=== PATIENT | female | born 1950 | race African-American/Black ===

== ENCOUNTER 2024-03-25 09:42 | Inpatient (IN) | payer OTHER ==
[2024-03-25] VITALS (26 sets, daily range): BP systolic 91–159; BP diastolic 42–127; TEMP 100.6; O2SAT 93–100
[~2024-03-25] VITALS: Ht 172.7 cm; Wt 113.9 kg
[2024-03-25] MEDS ORDERED: MEROPENEM 1 G in IV NS 0.9% 100 ML IV ONE (10:00)
[2024-03-25] MEDS ORDERED: ACETAMINOPHEN 650 MG/SUPP.RECT RC ONE (10:00)
[2024-03-25 10:17] LABS: BASOPHILS # (AUTO) 0.2 K/uL (0.0-0.2); BASOPHILS % (AUTO) 1.1 % (0.0-2.0); HEMATOCRIT 34 % (33-45); HEMOGLOBIN 10.8 g/dL (11.5-14.8); LYMPHOCYTES # (AUTO) 3.7 K/uL (0.8-4.8); LYMPHOCYTES % (AUTO) 23.1 % (20.0-44.0); MEAN CORPUSCULAR HEMOGLOBIN 27 PG (26.0-33.0); MEAN CORPUSCULAR HGB CONC 32 g/dl (31.0-36.0); MEAN CORPUSCULAR VOLUME 84 fL (82-100); MONOCYTES # (AUTO) 3.4 K/uL (0.1-1.30); MONOCYTES % (AUTO) 21.8 % (2.0-12.0); NEUTROPHILS # (AUTO) 8.5 K/uL (1.8-8.9); PLATELET COUNT (AUTO) 123 K/uL (150-450); RED BLOOD CELL COUNT(AUTO) 4.06 MIL/uL (4.0-5.2); RED CELL DISTRIBUTION WIDTH 20.6 % (11.5-15.0); WHITE BLOOD COUNT (AUTO) 15.8 K/uL (4.3-11.0)
[2024-03-25 10:23] LABS: CALCIUM, SERUM 8.8 mg/dL (8.5-10.1); CARBON DIOXIDE 36 mmol/L (21-32); CHLORIDE 101 mmol/L (98-107); CREATININE 1.4 mg/dL (0.6-1.3); GLUCOSE 187 mg/dL (74-106); POTASSIUM 3.9 mmol/L (3.5-5.1); SODIUM SERUM 143 mmol/L (136-145); UREA NITROGEN, BLOOD 52 mg/dL (7-18)
[2024-03-25] MEDS ORDERED: NUT.237L31 GT (10:27)
[2024-03-25] MEDS ORDERED: IPRA4AER IH ×2 (10:27)
[2024-03-25] MEDS ORDERED: CHLO473M2 MM (10:27)
[2024-03-25] MEDS ORDERED: PSYL283P40 GT (10:27)
[2024-03-25] MEDS ORDERED: NA P133E RC (10:27)
[2024-03-25] MEDS ORDERED: CRAN3875 GT (10:27)
[2024-03-25] MEDS ORDERED: MAGN400O6 GT (10:27)
[2024-03-25] MEDS ORDERED: ACET-2030 GT (10:27)
[2024-03-25] MEDS ORDERED: BIKTARVY GT (10:27)
[2024-03-25] MEDS ORDERED: AMLO10TA4 GT (10:27)
[2024-03-25] MEDS ORDERED: HEPA50008 SQ (10:27)
[2024-03-25] MEDS ORDERED: ALLA266C2 TP (10:27)
[2024-03-25] MEDS ORDERED: METO25TA6 GT (10:27)
[2024-03-25] MEDS ORDERED: HYDR-4076 GT (10:27)
[2024-03-25] MEDS ORDERED: ACET-868 GT (10:27)
[2024-03-25] MEDS ORDERED: VALP250S4 GT (10:27)
[2024-03-25] MEDS ORDERED: DOCU100T2 GT (10:27)
[2024-03-25] MEDS ORDERED: CICL6.6S5 TP (10:27)
[2024-03-25] MEDS ORDERED: LISI40TA13 GT (10:27)
[2024-03-25] MEDS ORDERED: LEVE100S GT (10:27)
[2024-03-25] MEDS ORDERED: ATOR40TA GT (10:27)
[2024-03-25] MEDS ORDERED: LACO100T2 GT (10:27)
[2024-03-25] MEDS ORDERED: FAMO-131 GT (10:27)
[2024-03-25] MEDS ORDERED: BISA10SU11 RC (10:27)
[2024-03-25] MEDS ORDERED: CLON0.1T GT (10:27)
[2024-03-25 10:30] LABS: ALANINE AMINOTRANSFERASE 19 U/L (12-78); ALBUMIN 1.9 g/dL (3.4-5.0); ALKALINE PHOSPHATASE 59 U/L (46-116); ASPARTATE AMINOTRANSFERASE 30 U/L (15-37); BILIRUBIN,DIRECT 0.1 mg/dL (0.0-0.2); BILIRUBIN,TOTAL 0.3 mg/dL (0.2-1.0); TOTAL PROTEIN, SERUM 8.4 g/dL (6.4-8.2)
[2024-03-25 10:34] LABS: INR 1.12 (0.91-1.10); PARTIAL THROMBOPLASTIN TIME 28.8 SEC (24.3-34.3); PROTHROMBIN TIME 11.8 SECS (9.2-11.1)
[2024-03-25] MEDS: MEROPENEM 1 G in IV NS 0.9% 100 ML IV ONE (10:40)
[2024-03-25] MEDS: ACETAMINOPHEN 650 MG/SUPP.RECT RC ONE (10:40)
[2024-03-25] MEDS: IV NS 0.9% 1,000 ML BAG IV ONE (10:40)
[2024-03-25 10:47] LABS: LACTIC ACID 2.1 mmol/L (0.4-2.0)
[2024-03-25] MEDS: IV LR 1000 ML 1,000 ML BAG IV ONE (10:47)
[2024-03-25] MEDS ORDERED: MAGNESIUM HYDROXIDE 30 ML UDC PO PRN (11:00)
[2024-03-25] MEDS ORDERED: ONDANSETRON HCL/PF 4 MG/2 ML VIAL IVP PRN (11:00)
[2024-03-25] MEDS ORDERED: ENOXAPARIN SODIUM 40 MG/0.4 ML DISP.SYRIN SQ SCH (11:00)
[2024-03-25] MEDS ORDERED: MAG HYDROX/AL HYDROX/SIMETH 30 ML UDC PO PRN (11:00)
[2024-03-25] MEDS ORDERED: ZOLPIDEM TARTRATE 5 MG TABLET PO PRN (11:00)
[2024-03-25] MEDS: VANCOMYCIN 1 GM in IV D5W 250 ML IV ONE (11:15)
[2024-03-25 11:20] LABS: BAND % (MANUAL) 11 % (0.0-5.0); EOSINOPHILS % (MANUAL) 1 % (0-4); LYMPHOCYTES % (MANUAL) 31 % (16-48); METAMYELOCYTES % 2 % (0-0); MONOCYTES % (MANUAL) 13 % (0-11.0); NEUTROPHILS % (MANUAL) 42 (42-76); PLATELET ESTIMATE DECREASED
[2024-03-25 11:21] LABS: ANISOCYTOSIS 1+
[2024-03-25 12:06] LABS: APPEARANCE,URINE CLEAR (CLEAR); BILIRUBIN,URINE NEGATIVE (NEGATIVE); BLOOD, URINE NEGATIVE Ery/uL (NEGATIVE); COLOR,URINE YELLOW (YELLOW); KETONES,URINE NEGATIVE (NEGATIVE); LEUKOCYTE ESTERASE ,URINE NEGATIVE (NEGATIVE); NITRITE, URINE NEGATIVE (NEGATIVE); PROTEIN,URINE 1+ mg/dl (NEGATIVE); UGLUCOSE NEGATIVE (NEGATIVE)
[2024-03-25] MEDS ORDERED: NOREPINEPHRINE 8MG/250ML RTU 250 ML IV ONE (12:07)
[2024-03-25] MEDS: NOREPINEPHRINE 8 MG in IV D5W 242 ML IV PRN ×2 (12:23→15:18)
[2024-03-25 12:34] LABS: ADD URINE CULTURE NO; BACTERIA,URINE Rare /HPF (None Seen); MUCUS,URINE Moderate /LPF (None Seen); RBC,URINE NONE SEEN /HPF (0-2); WBC,URINE NONE SEEN /HPF (0-3)
[2024-03-25] MEDS ORDERED: NOREPINEPHRINE 8 MG in IV D5W 242 ML IV PRN (16:30)
[2024-03-25] MEDS: ENOXAPARIN SODIUM 40 MG/0.4 ML DISP.SYRIN SQ SCH (17:19)
[2024-03-25] MEDS: IV NS 0.9% 1,000 ML IV PRN (17:19)
[2024-03-25] MEDS: AMIODARONE 150 MG in IV D5W 100 ML IV ONE (18:23)
[2024-03-25] MEDS: AMIODARONE 450 MG in IV D5W 241 ML IV PRN (18:35)
[2024-03-25] MEDS ORDERED: BISACODYL SUPP (10 MG) 10 MG/SUPP.RECT SUPP.RECT RC PRN (19:30)
[2024-03-25] MEDS ORDERED: MAGNESIUM HYDROXIDE 30 ML UDC GT PRN (19:30)
[2024-03-25] MEDS ORDERED: PSYLLIUM SEED 1 PKT PACKET GT PRN (19:30)
[2024-03-25] MEDS ORDERED: NA PHOS,M-B/NA PHOS,DI-BA 1 EA ENEMA RC PRN (19:30)
[2024-03-25] MEDS ORDERED: Medication Not On Formulary EA (Ipratropium/Albuterol Sulfate (Combivent Respimat 20-100 IH PRN (19:30)
[2024-03-25] MEDS ORDERED: MEROPENEM 1 G in IV NS 0.9% 100 ML IV SCH (21:00)
[2024-03-25] MEDS: ATORVASTATIN 40 MG TABLET GT SCH (21:01)
[2024-03-25] MEDS: ACETAMINOPHEN 325 MG TABLET PO PRN (21:02)
[2024-03-25] MEDS: MEROPENEM 1 G in IV NS 0.9% 100 ML IV SCH (22:40)
[2024-03-26] VITALS (79 sets, daily range): BP systolic 90–170; BP diastolic 38–109; TEMP 98.2–100.1; O2SAT 97–100
[2024-03-26] MEDS ORDERED: Medication Not On Formulary EA (Ipratropium/Albuterol Sulfate (Combivent Respimat 20-100 IH SCH
[2024-03-26] MEDS ORDERED: ALBUTEROL FS 2.5 MG/0.5 ML VIAL.NEB NEB PRN (01:00)
[2024-03-26] MEDS ORDERED: IPRATROPIUM NEB FS 0.5 MG/2.5 ML AMPUL.NEB IH PRN (01:00)
[2024-03-26] MEDS: VALPROIC ACID 250 MG/5 ML UDC GT SCH (01:03)
[2024-03-26] MEDS: IPRATROPIUM NEB FS 0.5 MG/2.5 ML AMPUL.NEB IH SCH (02:15)
[2024-03-26] MEDS: ALBUTEROL FS 2.5 MG/0.5 ML VIAL.NEB NEB SCH (02:15)
[2024-03-26 04:55] LABS: CALCIUM, SERUM 8.3 mg/dL (8.5-10.1); CARBON DIOXIDE 35 mmol/L (21-32); CHLORIDE 106 mmol/L (98-107); CREATININE 1.5 mg/dL (0.6-1.3); GLUCOSE 118 mg/dL (74-106); MAGNESIUM 2.8 mg/dL (1.8-2.4); PHOSPHORUS 3.9 mg/dL (2.5-4.9); POTASSIUM 3.9 mmol/L (3.5-5.1); SODIUM SERUM 143 mmol/L (136-145); UREA NITROGEN, BLOOD 54 mg/dL (7-18)
[2024-03-26] MEDS: ACETAMINOPHEN ES 500 MG TABLET GT PRN (04:56)
[2024-03-26 04:57] LABS: BASOPHILS % (AUTO) 0.3 % (0.0-2.0); EOSINOPHILS % (AUTO) 0.1 % (0.0-6.0); HEMATOCRIT 24 % (33-45); HEMOGLOBIN 7.8 g/dL (11.5-14.8); LYMPHOCYTES # (AUTO) 2.1 K/uL (0.8-4.8); LYMPHOCYTES % (AUTO) 20.6 % (20.0-44.0); MEAN CORPUSCULAR HEMOGLOBIN 27 PG (26.0-33.0); MEAN CORPUSCULAR HGB CONC 33 g/dl (31.0-36.0); MEAN CORPUSCULAR VOLUME 83 fL (82-100); MONOCYTES # (AUTO) 1.8 K/uL (0.1-1.30); MONOCYTES % (AUTO) 17.8 % (2.0-12.0); NEUTROPHILS # (AUTO) 6.2 K/uL (1.8-8.9); NEUTROPHILS % (AUTO) 61.2 % (43.0-81.0); PLATELET COUNT (AUTO) 115 K/uL (150-450); RED BLOOD CELL COUNT(AUTO) 2.87 MIL/uL (4.0-5.2); RED CELL DISTRIBUTION WIDTH 21.4 % (11.5-15.0); WHITE BLOOD COUNT (AUTO) 10.2 K/uL (4.3-11.0)
[2024-03-26] MEDS: AMIODARONE 150 MG/3 ML VIAL IV ONE (05:14)
[2024-03-26 05:27] LABS: ANISOCYTOSIS 1+; BAND % (MANUAL) 7 % (0.0-5.0); LYMPHOCYTES % (MANUAL) 16 % (16-48); MONOCYTES % (MANUAL) 21 % (0-11.0); NEUTROPHILS % (MANUAL) 56 (42-76); OVALOCYTES 1+; PLATELET ESTIMATE DECRE
[2024-03-26] MEDS: DOCUSATE SODIUM LIQ 100 MG/10 ML UDC GT SCH (08:13)
[2024-03-26] MEDS: PANTOPRAZOLE 40 MG TABLET.DR PO SCH (08:13)
[2024-03-26] MEDS: LEVETIRACETAM SOL (5 ML) 100 MG/ML UDC GT SCH (08:13)
[2024-03-26] MEDS: CHLORHEXIDINE GLUCONATE 15 ML UDC MM SCH (08:13)
[2024-03-26] MEDS: LACOSAMIDE ORAL SOLN 50 MG/5 ML UDC GT SCH ×2 (08:13→20:59)
[2024-03-26] MEDS: HEPARIN SODIUM, PORCINE 5000 UNITS/1 ML VIAL SQ SCH (08:14)
[2024-03-26] MEDS: LISINOPRIL (20MG) 20 MG TABLET GT SCH (08:44)
[2024-03-26] MEDS: LORAZEPAM INJ 2 MG/ML VIAL IV ONE (08:58)
[2024-03-26] MEDS ORDERED: BIKTARVY GT SCH (09:00)
[2024-03-26] MEDS ORDERED: Medication Not On Formulary EA (Cran/Vitc/Mannose/Inulin/Brom (Uti-Stat Liquid) 30 ML) GT SCH (09:00)
[2024-03-26] MEDS: GLUCERNA 1.2 1,000 ML BOTTLE NG PRN (09:24)
[2024-03-26] MEDS: FUROSEMIDE 40 MG/4 ML VIAL IV SCH (10:37)
[2024-03-26] MEDS: POTASSIUM CHLORIDE 20 MEQ POWDER PACKET NG SCH (10:37)
[2024-03-26] MEDS: hydrALAZINE HCL 50 MG TABLET PO SCH (10:38)
[2024-03-26] MEDS: VANCOMYCIN 1 GM in IV D5W 250ml IV SCH (11:36)
[2024-03-26] MEDS: NITROGLYCERIN 30 GM TUBE TP SCH (11:46)
[2024-03-26 12:31] LABS: IRON, SERUM 26 ug/dl (50-175); TOTAL IRON BINDING CAPACITY 197 ug/dl (250-450)
[2024-03-26 12:36] LABS: CHOLESTEROL 77 mg/dL (<200); FERRITIN 313 ng/mL (8-388); HDL CHOLESTEROL 23 mg/dL (40-60); LDL 32 mg/dL (0-99); TRIGLYCERIDES 145 mg/dL (30-150)
[2024-03-26] MEDS: VANCOMYCIN 500 MG in IV D5W 100ml IV SCH (13:32)
[2024-03-26] MEDS: Z GUARD REMEDY 4 OZ OINT TP PRN (17:23)
[2024-03-27] VITALS (59 sets, daily range): BP systolic 100–176; BP diastolic 40–99; TEMP 98.2–99.7; O2SAT 94–100
[2024-03-27 04:48] LABS: BASOPHILS % (AUTO) 0.2 % (0.0-2.0); EOSINOPHILS # (AUTO) 0.1 K/uL (0.0-0.7); EOSINOPHILS % (AUTO) 1.1 % (0.0-6.0); HEMATOCRIT 23 % (33-45); HEMOGLOBIN 7.6 g/dL (11.5-14.8); LYMPHOCYTES # (AUTO) 1.2 K/uL (0.8-4.8); LYMPHOCYTES % (AUTO) 15.8 % (20.0-44.0); MEAN CORPUSCULAR HEMOGLOBIN 27 PG (26.0-33.0); MEAN CORPUSCULAR HGB CONC 33 g/dl (31.0-36.0); MEAN CORPUSCULAR VOLUME 83 fL (82-100); MONOCYTES % (AUTO) 13.2 % (2.0-12.0); NEUTROPHILS # (AUTO) 5.3 K/uL (1.8-8.9); NEUTROPHILS % (AUTO) 69.7 % (43.0-81.0); PLATELET COUNT (AUTO) 143 K/uL (150-450); RED BLOOD CELL COUNT(AUTO) 2.79 MIL/uL (4.0-5.2); RED CELL DISTRIBUTION WIDTH 21.3 % (11.5-15.0); WHITE BLOOD COUNT (AUTO) 7.6 K/uL (4.3-11.0)
[2024-03-27 05:03] LABS: ALANINE AMINOTRANSFERASE 17 U/L (12-78); ALKALINE PHOSPHATASE 60 U/L (46-116); ASPARTATE AMINOTRANSFERASE 28 U/L (15-37); BILIRUBIN,TOTAL 0.3 mg/dL (0.2-1.0); CALCIUM, SERUM 7.7 mg/dL (8.5-10.1); CARBON DIOXIDE 34 mmol/L (21-32); CHLORIDE 106 mmol/L (98-107); CREATININE 1.1 mg/dL (0.6-1.3); GLUCOSE 128 mg/dL (74-106); MAGNESIUM 2.6 mg/dL (1.8-2.4); PHOSPHORUS 4.1 mg/dL (2.5-4.9); POTASSIUM 3.7 mmol/L (3.5-5.1); SODIUM SERUM 144 mmol/L (136-145); TOTAL PROTEIN, SERUM 6.6 g/dL (6.4-8.2); UREA NITROGEN, BLOOD 50 mg/dL (7-18)
[2024-03-27 05:08] LABS: ALBUMIN 1.4 g/dL (3.4-5.0)
[2024-03-27 05:09] LABS: ABG BASE EXCESS 6.9 mmol/L (-2.0-2.0); ABG OXYGEN SATURATION 97.7 % (92.0-98.5); ABG PCO2 45.7 mmHg (35.0-45.0); ABG PH 7.457 (7.350-7.450); ABG PO2 109.9 mmHg (75.0-100.0); ABG TOTAL HEMOGLOBIN 8.6 G/dL (12.0-16.0); AaDO2 267.6 mmHg; COHb 0.3 % (0.5-1.5); MetHb 0.4 % (0.0-1.5); SITE, ABG Left Radial
[2024-03-27] MEDS: AMIODARONE 150 MG in IV D5W 100 ML IV ONE (07:45)
[2024-03-27] MEDS: AMIODARONE 450 MG in IV D5W 241 ML IV PRN (07:58)
[2024-03-27 08:09] LABS: FOLIC ACID 15.6 ng/mL (>3.0)
[2024-03-28] VITALS (51 sets, daily range): BP systolic 90–189; BP diastolic 42–99; TEMP 98.7–99.8; O2SAT 94–100
[2024-03-28 04:18] LABS: BASOPHILS % (AUTO) 0.6 % (0.0-2.0); EOSINOPHILS # (AUTO) 0.2 K/uL (0.0-0.7); EOSINOPHILS % (AUTO) 2.5 % (0.0-6.0); HEMATOCRIT 24 % (33-45); HEMOGLOBIN 7.7 g/dL (11.5-14.8); LYMPHOCYTES % (AUTO) 25.9 % (20.0-44.0); MEAN CORPUSCULAR HEMOGLOBIN 27 PG (26.0-33.0); MEAN CORPUSCULAR HGB CONC 33 g/dl (31.0-36.0); MEAN CORPUSCULAR VOLUME 83 fL (82-100); MONOCYTES # (AUTO) 1.1 K/uL (0.1-1.30); MONOCYTES % (AUTO) 13.6 % (2.0-12.0); NEUTROPHILS # (AUTO) 4.5 K/uL (1.8-8.9); NEUTROPHILS % (AUTO) 57.4 % (43.0-81.0); PLATELET COUNT (AUTO) 195 K/uL (150-450); RED BLOOD CELL COUNT(AUTO) 2.83 MIL/uL (4.0-5.2); RED CELL DISTRIBUTION WIDTH 21.4 % (11.5-15.0); WHITE BLOOD COUNT (AUTO) 7.8 K/uL (4.3-11.0)
[2024-03-28 04:34] LABS: CARBON DIOXIDE 34 mmol/L (21-32); CHLORIDE 107 mmol/L (98-107); GLUCOSE 135 mg/dL (74-106); MAGNESIUM 2.5 mg/dL (1.8-2.4); PHOSPHORUS 3.7 mg/dL (2.5-4.9); POTASSIUM 3.5 mmol/L (3.5-5.1); SODIUM SERUM 145 mmol/L (136-145); UREA NITROGEN, BLOOD 45 mg/dL (7-18)
[2024-03-28] MEDS: IV NS 0.9% 250 ML IV PRN (06:25)
[2024-03-28] MEDS: AMIODARONE HCL 200 MG TABLET PEG SCH (08:20)
[2024-03-28] MEDS: hydrALAZINE HCL IV 20 MG VIAL IV PRN (17:59)
[2024-03-28] MEDS ORDERED: AMIODARONE HCL 200 MG TABLET PEG SCH (21:00)
== END 2024-03-28 20:30 | disposition short-term general hospital (02) | DRG 871 ==
LOC: ER 09:47 → TRANSITION 13:38 → ICU 16:28
PROVIDERS: ADMIT Student in an Organized Health Care Education/Training Program; ATTEND Nurse Practitioner Acute Care
PROC: 5A1945Z Respiratory Ventilation, 24-96 Consecutive Hours (ICD-10-PCS; principal; 2024-03-25)
PROC: 02HV33Z Insertion of Infusion Device into Superior Vena Cava, Percutaneous Approach (ICD-10-PCS; 2024-03-25)
PROC: B548ZZA Ultrasonography of Superior Vena Cava, Guidance (ICD-10-PCS; 2024-03-25)
DX: A41.9 Sepsis, unspecified organism (principal); E43 Unspecified severe protein-calorie malnutrition; J96.01 Acute respiratory failure with hypoxia; N17.0 Acute kidney failure with tubular necrosis; R65.21 Severe sepsis with septic shock; I21.A1 Myocardial infarction type 2; I50.33 Acute on chronic diastolic (congestive) heart failure; J96.21 Acute and chronic respiratory failure with hypoxia; J96.22 Acute and chronic respiratory failure with hypercapnia; J18.9 Pneumonia, unspecified organism; G93.41 Metabolic encephalopathy; Z99.11 Dependence on respirator [ventilator] status; E87.20 Acidosis, unspecified; J95.851 Ventilator associated pneumonia; Z20.822 Contact with and (suspected) exposure to COVID-19; K21.9 Gastro-esophageal reflux disease without esophagitis; R33.9 Retention of urine, unspecified; I69.398 Other sequelae of cerebral infarction; Z88.6 Allergy status to analgesic agent; Z93.0 Tracheostomy status; Z93.1 Gastrostomy status; R13.10 Dysphagia, unspecified; Z79.51 Long term (current) use of inhaled steroids; Z79.899 Other long term (current) drug therapy; Z79.82 Long term (current) use of aspirin; Z98.890 Other specified postprocedural states; G25.3 Myoclonus; F14.10 Cocaine abuse, uncomplicated; E88.09 Other disorders of plasma-protein metabolism, not elsewhere classified; E78.5 Hyperlipidemia, unspecified; D69.6 Thrombocytopenia, unspecified; D64.9 Anemia, unspecified; I48.91 Unspecified atrial fibrillation; Y84.8 Other medical procedures as the cause of abnormal reaction of the patient, or of later complication, without mention of misadventure at the time of the procedure; Y92.129 Unspecified place in nursing home as the place of occurrence of the external cause; R56.9 Unspecified convulsions; Z68.38 Body mass index [BMI] 38.0-38.9, adult; Z79.01 Long term (current) use of anticoagulants; Z95.1 Presence of aortocoronary bypass graft; I12.9 Hypertensive chronic kidney disease with stage 1 through stage 4 chronic kidney disease, or unspecified chronic kidney disease; N18.9 Chronic kidney disease, unspecified; Z86.19 Personal history of other infectious and parasitic diseases
CPT/HCPCS: 31720; 36415; 36600; 38221; 70450-TC; 71045-TC; 80048-TC; 80053-TC; 80061-TC; 80076-TC; 80164-TC; 80202-TC; 81001; 82607-TC; 82728-TC; 82803-TC; 83540-TC; 83605-TC; 83735-TC; 83921; 84100-TC; 84439-TC; 84443-TC; 84484-TC; 85025-TC; 85730-TC; 87040-TC; 87081-TC; 87086-TC; 93307-TC; 94002-TC; 94003-TC; 94762-TC; 94799-TC; 95819-TC; A4223; A7526; G0378; J0282; J0360; J1644; J1650; J1940; J1953; J2060; J2185; J3370; J7030; J7040; J7050; J7060; J7120